=== PATIENT | female | born 1950 | race African-American/Black ===

== ENCOUNTER 2021-07-01 19:33 | Inpatient (IN) ==
[2021-07-01 20:23] LABS: Basophils % 0.5 % (0.0-0.8); Eosinophils # 0.1 10*3/uL (0.0-0.87); Eosinophils % 1.8 % (0.00-10.9); Hematocrit 38.1 VOL% (35.7-47.0); Hemoglobin 12.4 GM/DL (12.0-16.0); Immature Granulocytes % 0.2 %; Immature Granulocytes Absolute 0.01 #; Lymphocytes % 45.4 % (21.3-54.2); Mean Corpuscular HGB Conc 32.5 GM/DL (32-36); Mean Corpuscular Volume 97.4 FL (87-102); Monocytes # 0.6 10*3/uL (0.11-0.8); Neutrophils % 43.1 % (38.7-73.9); Platelet Count 236 T/CUMM (130-400); Red Blood Count 3.91 MC/CUMM (3.8-5.5); Red Cell Distribution Width 12.3 % (9.3-17.3); White Blood Count 6.7 T/CUMM (4-12)
[2021-07-01] MEDS ORDERED: hydrALAZINE 20 MG/1 ML VIAL IV STA (20:31)
[2021-07-01] MEDS ORDERED: ALUM/MAG/SIMETH/LIDO VISC 1:1 30 ML BOTTLE PO STA (20:31)
[2021-07-01] MEDS ORDERED: MORPHINE 2 MG/1 ML SYRINGE IV STA (20:31)
[2021-07-01] MEDS ORDERED: ONDANSETRON 4 MG/2 ML VIAL IV STA (20:31)
[2021-07-01] MEDS ORDERED: ASPIRIN 325 MG TABLET PO STA (20:31)
[2021-07-01] MEDS ORDERED: PANTOPRAZOLE 40 MG VIAL IV STA (20:31)
[2021-07-01] MEDS ORDERED: NITROGLYCERIN 2% OINT 1 INCH/GM PACK TOP STA (20:31)
[2021-07-01 20:43] LABS: Alanine Aminotransferase 20 U/L (13-56); Albumin 3.5 G/DL (3.4-5.0); Alkaline Phosphatase 100 U/L (45-117); Aspartate Amino Transferase 16 U/L (0-37); Bilirubin,Total < 0.39 MG/DL (0.20-1.00); Blood Urea Nitrogen 22 MG/DL (7-18); Calcium 9.6 MG/DL (8.5-10.1); Carbon Dioxide 30 MMOL/L (21-32); Chloride 104 MMOL/L (98-107); Estimated Glom Filtration Rate 40 ML/MIN; Glucose 142 MG/DL (74-106); Osmolality,Calculated 279.7 MOS/KG (273-304); Potassium 3.9 MMOL/L (3.5-5.1); Sodium 138 MMOL/L (136-145); Total Protein 7.8 G/DL (6.4-8.2)
[2021-07-01 21:12] LABS: Urine Color Light Yellow (Yellow)
[2021-07-01 21:13] LABS: Bilirubin,Urine Negative (Negative); Blood, Urine Negative (Negative); Glucose,Urine (UA) Negative (Negative); Ketones,Urine Negative (Negative); Nitrite,Urine Negative (Negative); Protein,Urine Negative (Negative); Urine Appearance Clear (Clear); Urine Urobilinogen 0.2 eU/dL (<2.0)
[2021-07-01] MEDS ORDERED: ENOXAPARIN 100 MG/ML SYRINGE SUBCUT STA (21:13)
[2021-07-01 21:15] LABS: Bacteria,Urine Occasional /HPF (Few); RBC,Urine 2 /HPF (0-4); Squamous Epithelial Cell,Urine Occasional /HPF (0-10)
[2021-07-01] MEDS ORDERED: ENOXAPARIN 120 MG/0.8 ML SYRINGE SUBCUT STA (21:16)
[2021-07-01 21:27] LABS: Barbiturates Screen,Urine Negative (Negative); Benzodiazepines Screen,Urine Negative (Negative); Cannabinoid Screen,Urine Negative (Negative); Opiate Screen,Urine Negative (Negative); Phencyclidine Screen,Urine Negative (Negative)
[2021-07-01 21:44] LABS: INR 0.9; PT Patient Result 10.3 SECS (10.5-12.0)
[2021-07-01] MEDS ORDERED: hydrALAZINE 20 MG/1 ML VIAL IV PRN (22:12)
[2021-07-01] MEDS ORDERED: ACETAMINOPHEN 325 MG TABLET PO PRN (22:12)
[2021-07-01] MEDS ORDERED: ONDANSETRON 4 MG/2 ML VIAL IV PRN (22:12)
[2021-07-01] MEDS ORDERED: BISACODYL 5 MG TABLET PO PRN (22:12)
[2021-07-01] MEDS ORDERED: guaiFENesin/DM ER 600-30 MG TABLET PO PRN (22:12)
[2021-07-01] MEDS ORDERED: SIMETHICONE CHEW 125 MG TABLET PO PRN (22:12)
[2021-07-01] MEDS ORDERED: ZALEPLON 5 MG CAPSULE PO PRN (22:12)
[2021-07-01] MEDS ORDERED: CALCIUM CARBONATE CHEW 500 MG TABLET PO PRN (22:12)
[2021-07-01] MEDS ORDERED: ALUMINUM/MAGNES/SIMETH MAX STR 30 ML UDCUP PO PRN (22:12)
[2021-07-01] MEDS ORDERED: NICOTINE 21 MG/24 HR PATCH TRANSDERM PRN (22:12)
[2021-07-01] MEDS ORDERED: MORPHINE 2 MG/1 ML SYRINGE IV PRN (22:12)
[2021-07-01] MEDS ORDERED: diphenhydrAMINE CAP 25 MG CAPSULE PO PRN (22:12)
[2021-07-01] MEDS ORDERED: GLUCAGON 1 MG VIAL IM PRN (22:12)
[2021-07-01] MEDS ORDERED: amLODIPine 5 MG TABLET PO STA (22:15)
[2021-07-01] MEDS ORDERED: DEXTROSE 10% 250 ML BAG IV PRN (22:23)
[2021-07-01] MEDS ORDERED: TICAGRELOR 90 MG TABLET PO STA (23:29)
[2021-07-02 06:28] LABS: Basophils % 0.4 % (0.0-0.8); Eosinophils % 0.6 % (0.00-10.9); Hematocrit 35.2 VOL% (35.7-47.0); Hemoglobin 11.5 GM/DL (12.0-16.0); Immature Granulocytes % 0.1 %; Immature Granulocytes Absolute 0.01 #; Lymphocytes # 2.8 10*3/uL (1.4-4.0); Lymphocytes % 39.6 % (21.3-54.2); Mean Corpuscular HGB Conc 32.7 GM/DL (32-36); Mean Corpuscular Volume 98.1 FL (87-102); Mean Platelet Volume 10.4 FL (9.6-12.0); Monocytes # 0.7 10*3/uL (0.11-0.8); Monocytes % 9.4 % (1.7-12.7); Neutrophils % 49.9 % (38.7-73.9); Platelet Count 215 T/CUMM (130-400); Red Blood Count 3.59 MC/CUMM (3.8-5.5); Red Cell Distribution Width 12.3 % (9.3-17.3); White Blood Count 6.9 T/CUMM (4-12)
[2021-07-02 06:55] LABS: Risk Ratio 2.67; VLDL Cholesterol 25.2 MG/DL
[2021-07-02 07:30] LABS: Calcium 9.4 MG/DL (8.5-10.1)
[2021-07-02 07:31] LABS: Osmolality,Calculated 277.7 MOS/KG (273-304); Potassium 4.1 MMOL/L (3.5-5.1)
[2021-07-02] MEDS: ASPIRIN 325 MG TABLET PO SCH (09:04)
[2021-07-02] MEDS: PANTOPRAZOLE 40 MG TABLET PO SCH (09:04)
[2021-07-02] MEDS: ENOXAPARIN 120 MG/0.8 ML SYRINGE SUBCUT SCH ×2 (11:23→22:37)
[2021-07-02] MEDS ORDERED: diphenhydrAMINE CAP 50 MG CAPSULE PO ONE (12:04)
[2021-07-02] MEDS ORDERED: DIAZEPAM 5 MG TABLET PO ONE (12:04)
[2021-07-02] MEDS ORDERED: ROSUVASTATIN 20 MG TABLET PO SCH (21:00)
[2021-07-02] MEDS: carvediloL 3.125 MG TABLET PO SCH (21:11)
[2021-07-03 04:12] VITALS: BP 117/59
[2021-07-03 05:41] LABS: Basophils % 0.6 % (0.0-0.8); Eosinophils # 0.2 10*3/uL (0.0-0.87); Eosinophils % 3.2 % (0.00-10.9); Hematocrit 38.4 VOL% (35.7-47.0); Hemoglobin 12.4 GM/DL (12.0-16.0); Immature Granulocytes % 0.1 %; Immature Granulocytes Absolute 0.01 #; Lymphocytes % 58.5 % (21.3-54.2); Mean Corpuscular HGB Conc 32.3 GM/DL (32-36); Mean Corpuscular Volume 97.2 FL (87-102); Mean Platelet Volume 10.1 FL (9.6-12.0); Monocytes # 0.5 10*3/uL (0.11-0.8); Monocytes % 6.8 % (1.7-12.7); Neutrophils % 30.8 % (38.7-73.9); Platelet Count 249 T/CUMM (130-400); Red Blood Count 3.95 MC/CUMM (3.8-5.5); Red Cell Distribution Width 12.7 % (9.3-17.3); White Blood Count 6.8 T/CUMM (4-12)
[2021-07-03 05:52] LABS: Calcium 9.1 MG/DL (8.5-10.1); Osmolality,Calculated 279.4 MOS/KG (273-304); Potassium 4.3 MMOL/L (3.5-5.1)
[2021-07-03 06:10] LABS: Atypical Lymphocytes Few; Eosinophils 3 % (0-10); Lymphocytes 64 % (20-55); Total Cells Counted 100
[2021-07-03 06:11] LABS: Microcytosis Slight; Platelet Estimate Normal
[2021-07-03] MEDS ORDERED: SODIUM CHLORIDE 0.9% 1,000 ML IV SCH (08:00)
[2021-07-03] MEDS: PANTOPRAZOLE 40 MG TABLET PO SCH (09:45)
[2021-07-03] MEDS: carvediloL 3.125 MG TABLET PO SCH (09:50)
[2021-07-03] MEDS: ASPIRIN 325 MG TABLET PO SCH (09:50)
[2021-07-03] MEDS ORDERED: HEPARIN/NACL 0.9% 2 UNITS/ML 2,000 UNIT/1,000 ML BAG IV ONE (10:19)
[2021-07-03] MEDS ORDERED: diphenhydrAMINE CAP 50 MG CAPSULE PO ONE (11:00)
[2021-07-03] MEDS ORDERED: DIAZEPAM 5 MG TABLET PO ONE (11:00)
[2021-07-03] MEDS ORDERED: NITROGLYCERIN DRIP 50 MG/250 ML BOTTLE IV ONE (11:34)
[2021-07-03] MEDS ORDERED: VERAPAMIL 5 MG/2 ML VIAL ONE (11:34)
[2021-07-03] MEDS ORDERED: HYDROmorphone 1 MG/1 ML SYRINGE ONE (11:42)
[2021-07-03] MEDS ORDERED: MIDAZOLAM 2 MG/2 ML VIAL ONE (11:42)
[2021-07-03] MEDS ORDERED: ENOXAPARIN 30 MG/0.3 ML SYRINGE ONE (11:55)
[2021-07-04] MEDS ORDERED: amLODIPine 5 MG TABLET PO SCH (09:00)
[2021-07-04] MEDS ORDERED: ASPIRIN EC 81 MG TABLET PO SCH (09:00)
[2021-07-04] MEDS ORDERED: CLOPIDOGREL 75 MG TABLET PO SCH (09:00)
== END 2021-07-03 18:18 | disposition home or self-care (01) | DRG 282 ==
LOC: N.ED 19:33 → N.EDINP 22:12 → N.CC 07-02 11:16
PROVIDERS: ADMIT Internal Medicine; ATTEND Internal Medicine